=== PATIENT | female | born 1990 | race Caucasian/White ===

== ENCOUNTER 2018-06-23 16:25 | Emergency (ER) | payer SELFPAY ==
[2018-06-23] MEDS ORDERED: Ibuprofen 800 MG TAB ONE (17:06)
--- NOTE | 2018-06-23 17:24 | RAD ---
RIGHT ELBOW FOUR VIEW: 06/23/18 HISTORY: Pain. COMPARISON: None. FINDINGS: There is no significant joint effusion. No acute displaced fracture or malalignment. IMPRESSION: No acute fracture or malalignment. POS: [facility]
== END 2018-06-23 17:40 | disposition home or self-care (01) ==
LOC: MADERS 16:25
DX: S53.401A Unspecified sprain of right elbow, initial encounter (principal); I10 Essential (primary) hypertension; W18.30XA Fall on same level, unspecified, initial encounter

== ENCOUNTER 2018-09-17 07:51 | Emergency (ER) | payer MEDICAID, SELFPAY ==
[2018-09-17] MEDS ORDERED: Ibuprofen 100 MG/5 ML UDCUP ONE (08:40)
[2018-09-17] MEDS ORDERED: Bicillin LA 1.2 MILLION UNITS/2 ML SYRINGE ONE (09:14)
== END 2018-09-17 09:45 | disposition home or self-care (01) ==
LOC: MADERS 07:51
DX: J02.0 Streptococcal pharyngitis (principal)
CPT/HCPCS: 87430; 96372; J0561